=== PATIENT | male | born 1980 | race Caucasian/White ===

== ENCOUNTER → 2016-10-13 | Day surgery (SDC) | payer BC ==
[~2016-10-13] MED LIST: NO MEDICATIONS
--- NOTE | ~2016-10-13 | OR ---
Unit #: [id number] #: [id number] Patient: MINOR CASILLAS [id number] [address] [id number] O MR#: [id number] NAME: MINOR CASILLAS ROOM: Date of Procedure: 10/13/2016 Admission Date: 10/13/2016 Surgeon: Hunter Monk III, M.D. : 1980 Attending Physician: Hunter Monk III, M.D. Referring Physician: Hunter Monk III, M.D. OPERATIVE REPORT PREOPERATIVE DIAGNOSES Abdominal pain and rectal bleeding. POSTOPERATIVE DIAGNOSES Abdominal pain and rectal bleeding with hiatal hernia (small to medium). Other findings, normal colonoscopy to cecum. PROCEDURES PERFORMED Esophagogastroduodenoscopy with biopsy and colonoscopy to cecum. ANESTHESIA MAC. SPECIMENS Antrum was sent for VIOLA testing. COMPLICATIONS None apparent. INDICATIONS FOR PROCEDURE This is a 36-year-old gentleman, who has had some intermittent rectal bleeding and some nonspecific abdominal pain. He is here today for upper and lower endoscopy. DESCRIPTION OF PROCEDURE After consent was obtained, the patient was brought to the endoscopy suite and placed in the left lateral decubitus position. We titrated the above sedation and I passed an EGD scope easily into the esophagus under direct visualization. He had normal peristalsis. No evidence of any erosions, and he did have a small to medium size hiatal hernia. I advanced the scope on into the body of the stomach and there were no ulcerations or masses or gastritis. The pylorus was patent and the first and second portions of the duodenum appeared normal. I then took a biopsy of the antrum for VIOLA testing. The scope was retroflexed within the cardia and again, the small to medium hiatal hernia was observed. The scope was straightened and carefully withdrawn. I then performed a rectal exam and did not feel any masses. There were no external or internal hemorrhoids. The scope was placed within the rectal vault. Air was insufflated. I navigated the scope all the way to the cecum. He had normal mucosa. No evidence of any polyps or masses and no diverticular disease was seen. The scope was retroflexed within the rectum. No other masses were seen. The scope was then carefully withdrawn. The patient tolerated the Unit #: [id number] #: [id number] Patient: MINOR CASILLAS procedure without any problems and returned to the recovery room in stable condition. Dictated by... Hunter Monk III, M.D. VCL/jeison TD: 10/14/2016 00:11 JOB #: [id number] OPERATIVE REPORT Page 1 of 1 X Hunter Monk III, MD X PROCEDURE OPERATIVE NOTE
== END | disposition home or self-care (01) ==
LOC: COPS 09:04
DX: K44.9 Diaphragmatic hernia without obstruction or gangrene (principal); K62.5 Hemorrhage of anus and rectum; I10 Essential (primary) hypertension
CPT/HCPCS: 87077; J2250